=== PATIENT | female | born 1945 | race Caucasian/White ===

== ENCOUNTER 2016-10-15 01:33 | Inpatient (IN) | payer OTHER, MEDICARE ==
[~2016-10-15] VITALS: Ht 157.5 cm; Wt 83.9 kg
[~2016-10-15 01:33] MED LIST: AMLODIPINE BESYL5 M1 PO; CALCIUM PO; CELEBREX200 M1 PO; CLONAZEPAM0.5 M2 PO; GABAPENTIN100 M2 PO; LEXAPRO20 M1 PO; WELCHOL3.75 GM PO
--- NOTE | 2016-10-15 09:40 | Admission Core Measures ---
Admission Meds I reviewed the following Meds: Current Medications Sig/Yanet Start time Last Medication Dose Stop Time Status Admin Alvimopan 12 MG ONCE 10/15 0000 NR (Entereg) 10/15 3256 Acute Coronary Syndrome Inclusion Criteria ACS Diagnosis No Inpatient Core Measures LDL Reminder: If No, please order W/I first 24hr of stay Congestive Heart Failure Inclusion Criteria CHF Diagnosis No Cerebrovascular accident Inclusion Criteria CVA/TIA Diagnosis No Inpatient Core Measures Bedside Swallow Eval Reminder: If BSE failed, place ST order Antithrombotic Reminder: Order Antithrombotic Medication by end of day 2 Antithrombotic Reminder: Document Reason Antithrombotic Not ordered by end of day 2 AFIB/Flutter Reminder: If Present, add to problem list AFIB/Flutter Reminder: Order Anticoag Medication for pts with AFIB/Flutter Atherosclerosis Reminder: If Present, add to problem list LDL Reminder: If No, please order W/I first 24hr of stay PT Order Reminder: If No, please order Venous thromboembolism Inpatient Core Measures VTE Risk Factors: Age > 40, Surgery No Mech VTE prophylaxis d/t No contraindications No VTE Pharm Prophylaxis d/t No contraindications Inclusion Criteria - Per Current guidelines, there needs to be overlap - treatment for the first 5 days of Warfarin therapy. - Parenteral Anticoagulation (IV or SC) needs to be - given along with Warfarin therapy. VTE Diagnosis No VTE Type NONE VTE Confirmed by (Test) NONE Problem List As ranked by this Provider includes Assessment & Plan 1. Ulcerative colitis HOME MEDS Home Med List Amlodipine Besylate 5 MG TABLET 1 TAB PO DAILY HTN (Reported) [CALCIUM] 1,200 MG PO BID PROPHO (Reported) Celecoxib (Celebrex) 200 MG CAPSULE 1 CAP PO DAILY PAIN (Reported) Clonazepam 0.5 MG TABLET 1 TAB PO BIDP PRN ANXIETY (Reported) Colesevelam HCl (Welchol) 3.75 GRAM POWD.PACK 1 PAC PO EVERY OTHER CHOLESTEROL (Reported) Escitalopram Oxalate (Lexapro) 20 MG TABLET 1 TAB PO DAILY ANXIETY (Reported) Gabapentin 100 MG CAPSULE 1 CAP PO NIGHTLY PAIN (Reported)
--- NOTE | 2016-10-15 10:00 | Operative Report ---
Operative/Inv Procedure Report Surgery Date: 10/15/16 Name of Procedure: Revision of ileostomy with bowel resection Pre-Operative Diagnosis: Chronic ileostomy with complication Post-Operative Diagnosis: Chronic ileostomy with complication Estimated Blood Loss: less than 50ml Surgeon/Semi Automatic Sewing Machine Operator: SUMI HILL JR, DO Anesthesia: general endotracheal tube Monitors: Per routine Urine Output: Adequate Drains: None Specimens: Ileostomy, small bowel Complications: None Condition: Good Operative Indication: This is a 71-year-old female who many years ago had a total proctocolectomy for ulcerative colitis. She had a permanent ileostomy formed at that time. Her ileostomy has caused her long-term problems. It has periods where it functions well followed by periods where it retracts to below the skin. This causes difficulty with fitting her appliance. In turn this causes is leakage of stool which causes injury to the skin and public embarrassment. She presents today to have a revision of the stoma Operative/Procedure Note Note: Patient was taken into the operating room. Placed in the supine position on the operating room table. She underwent induction of general anesthesia placement of endotracheal tube and placement of Elkins catheter. She received IV antibiotics prior to incision. The abdomen was prepped and draped in usual fashion. An incision was carried out around the mucocutaneous border of the stoma. The incision was taken full-thickness through the skin into the subcutaneous adipose tissue. I continued to mobilize the tissue until I reached the fascia. I entered the hernia sac surrounding the ileostomy and was able to tract a large portion of the small bowel through this incision. I would say at least 10 cm. The distal end of the bowel had become fibrotic strictured so this portion of the small bowel was excised. First I cleared a window in the mesentery about 2 cm from the distal tip of the bowel. The mesentery was divided with the LigaSure. The bowel was then divided with the cutting current and needle Bovie. About 2-1/2 cm of bowel was resected. Next I created a Kelly-type ileostomy. The edge of the bowel was first sewn to its self about 2 cm from the tip of the stoma placing seromuscular bites in the bowel wall and then tacking suture to the dermis. The Kelly created using 3-0 Vicryl sutures at about 12 different sites around the circumference of the bowel. I was very pleased with the stoma which appeared like a nice [place] sitting about a centimeter above the skin surface. At this point the procedure was concluded. The skin was cleansed and dried. A stomal collection device was placed. The patient was extubated in the operating room. The patient tolerated the procedure well. She was taken to the recovery area in good condition. At the end this operational needle sponges and attachments were accounted for
[2016-10-15 13:00] VITALS: BP 126/78
--- NOTE | 2016-10-15 13:31 | Patient Discharge Instructions ---
Discharge Instructions General Discharge Information You were seen/treated for: complication of ileostomy You had these procedures: revision ileostomy with bowel resection Watch for these problems: temp>101.5, bleeding, change in stoma color No bath, but you may shower: Yes Other wound care: continue previous stoma care Diet Continue normal diet: Yes Activity Activity Limited to: Weight bear as tolerated Other activity limits: no strenuous activity Acute Coronary Syndrome Inclusion Criteria At DC or during hospital stay patient has or had the following: ACS DIAGNOSIS No Discharge Core Measures Meds if any: Prescribed or Continued at Discharge Meds if any: NOT Prescribed or Continued at Discharge Congestive Heart Failure Inclusion Criteria At DC or during hospital stay patient has or had the following: CHF DIAGNOSIS No Discharge Core Measures Meds if any: Prescribed or Continued at Discharge Meds if any: NOT Prescribed or Continued at Discharge Cerebrovascular accident Inclusion Criteria At DC or during hospital stay patient has or had the following: CVA/TIA Diagnosis No Discharge Core Measures Meds if any: Prescribed or Continued at Discharge Meds if any: NOT Prescribed or Continued at Discharge Venous thromboembolism Inclusion Criteria VTE Diagnosis No VTE Type NONE VTE Confirmed by (Test) NONE Discharge Core Measures - Per Current guidelines, there needs to be overlap - treatment for the first 5 days of Warfarin therapy. - If discharged on Warfarin prior to 5 days of - overlap therapy, the patient will need to be - assessed for post discharge needs including - *Post discharge parental anticoagulation - *Warfarin and/or parental anticoagulation education - *Follow up date to check INR post discharge At least 5 days overlap therapy as Inpatient No Meds if any: Prescribed or Continued at Discharge Note: Overlap Therapy is Warfarin and Anticoagulant Meds if any: NOT Prescribed or Continued at Discharge
[2016-10-15] MEDS ORDERED: PERCOCET 5-3251 EACH PO (13:33)
--- NOTE | 2016-10-15 13:48 | Surg Short-stay <48hrs Dis Sum ---
Visit Information Visit Dates Admission Date: 10/15/16 Discharge Date: 10/15/16 Surgical Short Stay DC Summary Admission Diagnosis: Complications of ileostomy Final Diagnosis: Complications of ileostomy Procedure(s): Revision ileostomy with bowel resection Summary/Significant Findings: Mrs. Jacobsen was taken to the operating room for complications of ileostomy. Correction of ileostomy was done with subsequent small bowel resection for closure. She tolerated procedure well and she was transferred to the floor. She was out of bed ambulating with nursing staff and voided independently without difficulty. Condition at Discharge: Stable Discharge Disposition: home or self care Discharge instructions provided to patient/family: Yes Post discharge follow-up plan: May resume all home meds Take Percocet as needed for pain Resume stoma care Follow up with Dr. Kauffman per discharge instruction sheet
== END 2016-10-15 16:05 | DRG 331 ==
LOC: SDA 01:33 → ENRESERV 12:01 → 2NB 12:49
PROVIDERS: ADMIT Colon & Rectal Surgery
PROC: 0DT80ZZ Resection of Small Intestine, Open Approach (ICD-10-PCS; principal; 2016-10-15)
DX: K94.13 Enterostomy malfunction (principal); Y92.019 Unspecified place in single-family (private) house as the place of occurrence of the external cause
CPT/HCPCS: 2NBSP; 36415; 87086; C9399; J0131; J1100; J1580; J1885; J2405; J7042